=== PATIENT | male | born 1975 | race Caucasian/White ===

== ENCOUNTER → 2021-08-25 | Outpatient (CLI) | payer BC ==
[2021-08-25 14:11] LABS: BUN/CREATININE RATIO 18 (0-10)
== END ==
LOC: LAB 12:52
PROVIDERS: Physician Assistant Surgical
DX: M25.50 Pain in unspecified joint (principal); D50.9 Iron deficiency anemia, unspecified; E55.9 Vitamin D deficiency, unspecified; E53.8 Deficiency of other specified B group vitamins; E80.6 Other disorders of bilirubin metabolism
CPT/HCPCS: 36415; 80053; 82247; 82248